=== PATIENT | female | born 1960 | race Caucasian/White ===

== ENCOUNTER → 2017-06-12 | Outpatient (CLI) | payer OTHER ==
--- NOTE | 2017-06-12 18:11 | KCIC ---
Bilateral digital screening mammograms: Reason for examination: Routine screening. Comparison is made to previous studies dated back to 03/03/2014. Interpretation was made with the benefit of CAD. The skin and nipples show no abnormalities. No abnormal axillary lymph nodes are seen. The breast parenchyma shows scattered fibroglandular density. (Breast density: Category B.) There continues to be a small nodular density at the 4:00 B position of the left breast which is unchanged. There are no new dominant masses, suspicious calcifications or architectural distortions. Some benign calcifications are present. Impression: No evidence of malignancy. Recommend routine screening. BI-RADS category 2: Benign "Our facility is accredited by the [employer] Mammography [employer]." This patient's information has been entered into a reminder system for the patient to be notified with the results of her examination and a target date for the next mammogram. Electronically signed by: Ashley Rangel MD (06/12/2017 6:08 PM) [id number]
== END | disposition home or self-care (01) ==
LOC: KCIC MAMMO 13:15
PROVIDERS: ATTEND Nurse Practitioner Family
DX: Z12.31 Encounter for screening mammogram for malignant neoplasm of breast (principal)
CPT/HCPCS: G0202; 77067

== ENCOUNTER → 2018-06-18 | Outpatient (CLI) | payer OTHER ==
--- NOTE | 2018-06-18 15:17 | KCIC ---
Bilateral digital screening mammograms: Reason for examination: Routine screening. Comparison is made to previous studies dated 06/12/2017 and 06/06/2016. Interpretation was made with the benefit of CAD. The skin and nipples show no abnormalities. No abnormal axillary lymph nodes are seen. The breast parenchyma shows scattered fibroglandular density. (Breast density: Category B.) There continue to be small parenchymal densities bilaterally which have not changed. There are no new dominant masses, suspicious calcifications or architectural distortions. Benign calcifications are present. Impression: No evidence of malignancy. Recommend routine screening. BI-RADS category 2: Benign "Our facility is accredited by the [employer] Mammography [employer]." This patient's information has been entered into a reminder system for the patient to be notified with the results of her examination and a target date for the next mammogram. Electronically signed by: Ashley Rangel MD (06/18/2018 3:14 PM) [id number]
== END | disposition home or self-care (01) ==
LOC: KCIC MAMMO 10:20
PROVIDERS: ATTEND Nurse Practitioner Family
DX: Z12.31 Encounter for screening mammogram for malignant neoplasm of breast (principal)
CPT/HCPCS: 77067

== ENCOUNTER → 2019-06-22 | Outpatient (CLI) | payer OTHER ==
--- NOTE | 2019-06-22 18:59 | KCIC ---
Bilateral digital screening mammograms: Reason for examination: Routine screening. Comparison is made to previous studies dated 06/18/2018 and 06/12/2017. Interpretation was made with the benefit of CAD. The skin and nipples show no abnormalities. No abnormal axillary lymph nodes are seen. The breast parenchyma shows scattered fibroglandular density. 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 There are also additional small nodular densities bilaterally which are stable. There are no new dominant masses, suspicious calcifications or architectural distortions. Some benign calcifications are present. Impression: No evidence of malignancy. Recommend routine screening. BI-RADS category 2: Benign "Our facility is accredited by the [employer]ammography [employer]." This patient's information has been entered into a reminder system for the patient to be notified with the results of her examination and a target date for the next mammogram. Electronically signed by: Ashley Rangel MD (06/22/2019 6:56 PM) [facility]
== END | disposition home or self-care (01) ==
LOC: KCIC MAMMO 15:30
PROVIDERS: ATTEND Nurse Practitioner Family
DX: Z12.31 Encounter for screening mammogram for malignant neoplasm of breast (principal); N64.89 Other specified disorders of breast
CPT/HCPCS: 77067

== ENCOUNTER → 2020-07-17 | Outpatient (CLI) | payer OTHER ==
--- NOTE | 2020-07-17 15:38 | KCIC ---
Bilateral digital screening mammograms Reason for examination: Routine screening. Family history of breast cancer the patient's sister. Comparison is made to previous study dated June 22, 2019 and priors Routine CC and MLO digital views obtained. Interpretation was made with the benefit of CAD. The skin and nipples show no abnormalities. No abnormal lymph nodes are seen. The breast parenchyma is scattered fibroglandular elements. (Breast density: Category B.) There are no suspicious masses, suspicious calcifications or architectural distortions. Benign calcifications. Scattered glandular nodularity of both breasts again demonstrated. At the left inner breast 5 cm from the nipple there is nodular asymmetry new from prior studies of both the CC and MLO views. Impression: Asymmetry of the left inner breast. Further evaluation with left diagnostic mammogram with spot compression CC and MLO views, and ML view, and left breast ultrasound is advised. BI-RADS Category 0: Incomplete examination. "Our facility is accredited by the [employer] Mammography [employer]." This patient's information has been entered into a reminder system for the patient to be notified with the results of her examination and a target date for the next mammogram. Electronically signed by: Ambrosio Rivera MD (07/17/2020 3:35 PM) [id number]
== END ==
LOC: KCIC MAMMO 13:43
PROVIDERS: ATTEND Nurse Practitioner Family
DX: Z12.31 Encounter for screening mammogram for malignant neoplasm of breast (principal); N64.89 Other specified disorders of breast
CPT/HCPCS: 77067

== ENCOUNTER → 2020-08-22 | Outpatient (CLI) | payer OTHER ==
--- NOTE | 2020-08-22 12:43 | RAD ---
Examination: 1. Left digital diagnostic mammogram. 2. Limited left breast ultrasound. INDICATION: 60-year-old woman recalled from screening for developing mass in the inferior left breast . COMPARISON: Mammograms of 07/17/2020, 06/22/2019, 06/06/2016 and limited left breast ultrasound exami nations of 10/19/2015 and 04/06/2015. TECHNIQUE: Additional mammographic views of the left breast were obtained with a full field left ML v iew that was reviewed with computer-aided detection and with spot compression CC and MLO views of the left breast. Targeted ultrasound of the lower inner quadrant left breast was then performed with gra yscale and color Doppler imaging. The left axilla was also imaged on ultrasound. FINDINGS: Additional views of the left breast revealed persistence of the mass in the inferior left breast reca lled from screening posteriorly. The breast parenchyma is composed of scattered fibroglandular densit ies. Targeted ultrasound of the inferior left breast identifies an irregular 3 mm mass at the 7:00 positio n 3 cm from the nipple that is likely an incidental but mildly suspicious finding. At the 6:00 position 4 cm from the nipple, a 1.1 cm parallel orientation oval mass with microlobulate d margins is identified and is associated with low-level internal echoes with no significant internal vascularity. This is also mildly suspicious. IMPRESSION: Two small suspicious nodules in the inferior left breast, the larger which likely represents the find ing recalled from screening. BI-RADS Category 4 Findings suspicious for malignancy Ultrasound-guided core needle biopsy of the left breast at both sites is recommended. Discussed with patient. Findings and recommendations telephoned to the patient's referring provider's office (Liliana Dillard APRN) where Pranay took the report on her behalf by telephone at 11:28 AM on 08/22/2020. Pat ient requests expedited biopsy if possible. Electronically signed by: Patti Cristina MD (08/22/2020 12:41 PM) [id number]
== END ==
LOC: MAMMO 10:22
PROVIDERS: ATTEND Nurse Practitioner Family
DX: N63.24 Unspecified lump in the left breast, lower inner quadrant (principal)
CPT/HCPCS: 76641; 77065

== ENCOUNTER → 2020-09-14 | Outpatient (CLI) | payer OTHER ==
--- NOTE | 2020-09-14 11:26 | RAD ---
Examination: 1. Ultrasound-guided left breast core needle biopsy. 2. Left digital postprocedure mammogram. INDICATION: 60-year-old woman recommended for biopsy of 2 small nodules in the inferior left breast, one at the 6:00 position 4 cm from the nipple measuring 1.1 cm and without second at the 7:00 positio n 3 cm from nipple measuring 3 mm. These were found in mammographic screening and diagnostic workup 1 09/16/2019 and 08/22/2020 respectively. COMPARISON: Mammograms of 07/17/2020 and 08/22/2020 and left breast ultrasound of 08/22/2020 TECHNIQUE AND FINDINGS: Informed consent was obtained and an appropriate procedural pause observed. Using standard sterile te chnique, ultrasound guidance and local anesthesia (using nesacaine, in lieu of lidocaine due to a rep orted possible liocaine allergy) multiple 14-gauge core biopsy samples of the left breast mass at the 6:00 position 4 cm from the nipple were obtained. Preprocedural imaging of the left breast showed no persistence of the small mass at the 7:00 position 3 cm from the nipple so it was not pursued for biopsy at this visit. The samples were placed in formalin, S-shaped biopsy marker was deployed at the biopsy site and hemos tasis ensured with direct breast compression for several minutes. Puncture site was dressed and left postprocedure mammogram was obtained. The postprocedural mammogram shows satisfactory positioning of the biopsy marker in the inferior slig htly lateral left breast, closer to 5:30 o'clock position 5 cm from the nipple. It also shows that th e asymmetry recalled from screening in the inner left breast (likely correlating with the 7:00 positi on finding) has since dissipated. No postbiopsy hematoma. Post procedure instructions reviewed and patient discharged in stable conditi on to follow up with her referring physician. IMPRESSION: Uncomplicated left breast core needle biopsy with ultrasound guidance. Pathology results are pending. An addendum will be issued once results become available. Electronically signed by: Patti Cristina MD (09/14/2020 11:23 AM) [id number]
--- NOTE | 2020-09-17 15:43 | RAD ---
ADDENDUM #1 Addendum: Pathology results indicate fibrocystic changes including stromal fibrosis, duct ectasia and cystic ch chitra in focal apocrine metaplasia. No atypia or evidence of malignancy. This is a benign concordant r esult. Recommend patient return to routine screening. Electronically signed by: Patti Cristina MD (09/17/2020 4:28 PM) [id number] ORIGINAL REPORT Examination: 1. Ultrasound-guided left breast core needle biopsy. 2. Left digital postprocedure mammogram. INDICATION: 60-year-old woman recommended for biopsy of 2 small nodules in the inferior left breast, one at the 6:00 position 4 cm from the nipple measuring 1.1 cm and without second at the 7:00 positio n 3 cm from nipple measuring 3 mm. These were found in mammographic screening and diagnostic workup 1 09/16/2019 and 08/22/2020 respectively. COMPARISON: Mammograms of 07/17/2020 and 08/22/2020 and left breast ultrasound of 08/22/2020 TECHNIQUE AND FINDINGS: Informed consent was obtained and an appropriate procedural pause observed. Using standard sterile te chnique, ultrasound guidance and local anesthesia (using nesacaine, in lieu of lidocaine due to a rep orted possible liocaine allergy) multiple 14-gauge core biopsy samples of the left breast mass at the 6:00 position 4 cm from the nipple were obtained. Preprocedural imaging of the left breast showed no persistence of the small mass at the 7:00 position 3 cm from the nipple so it was not pursued for biopsy at this visit. The samples were placed in formalin, S-shaped biopsy marker was deployed at the biopsy site and hemos tasis ensured with direct breast compression for several minutes. Puncture site was dressed and left postprocedure mammogram was obtained. The postprocedural mammogram shows satisfactory positioning of the biopsy marker in the inferior slig htly lateral left breast, closer to 5:30 o'clock position 5 cm from the nipple. It also shows that th e asymmetry recalled from screening in the inner left breast (likely correlating with the 7:00 positi on finding) has since dissipated. No postbiopsy hematoma. Post procedure instructions reviewed and patient discharged in stable conditi on to follow up with her referring physician. IMPRESSION: Uncomplicated left breast core needle biopsy with ultrasound guidance. Pathology results are pending. An addendum will be issued once results become available. Electronically signed by: Patti Cristina MD (09/17/2020 3:40 PM) [id number]
== END | disposition home or self-care (01) ==
LOC: US 09:26
PROVIDERS: ATTEND Surgery
DX: N63.23 Unspecified lump in the left breast, lower outer quadrant (principal); R92.8 Other abnormal and inconclusive findings on diagnostic imaging of breast; Z79.899 Other long term (current) drug therapy
CPT/HCPCS: 19083; 77065; 88305; C1713; 76942

== ENCOUNTER → 2021-06-27 | Outpatient (CLI) | payer OTHER ==
--- NOTE | 2021-06-27 18:03 | KCIC ---
Bilateral digital screening mammogram: Reason for examination: Routine screening. Comparison is made to previous study mammograms from 07/17/2020 and 06/22/2019. Interpretation was made with the benefit of CAD. Findings: Breast density: Category B. There are scattered areas of fibroglandular density. There are no dominant masses, suspicious calcifications or architectural distortions again seen is a biopsy marker in the 5:30 position of the left breast with associated nodularity, from previous benig n biopsy Impression: No evidence of malignancy. Assessment: BI-RADS Category 1: Negative. Recommendation: Routine screening mammograms. This patient's information has been entered into a reminder system for the patient to be notified wit h the results of her examination and a target date for the next mammogram. Electronically signed by: Courtney Domingo MD (06/27/2021 6:01 PM) [id number]
== END ==
LOC: KCIC MAMMO 12:43
PROVIDERS: ATTEND Nurse Practitioner Family
DX: Z12.31 Encounter for screening mammogram for malignant neoplasm of breast (principal)
CPT/HCPCS: 77067